=== PATIENT | female | born 2000 | race Caucasian/White ===

== ENCOUNTER → 2020-04-22 | Outpatient (REF) | payer SELFPAY | LOC: M WUC 15:05 | PROVIDERS: ATTEND Physician Assistant | DX: R30.0 Dysuria (principal) ==

== ENCOUNTER 2020-06-12 02:23 | Emergency (ER) | payer SELFPAY ==
[~2020-06-12] VITALS: Ht 170.2 cm; Wt 70.5 kg
[2020-06-12 02:24] VITALS: BP 136/71
== END 2020-06-12 05:15 | disposition left against medical advice (07) ==
LOC: M ED 02:23
DX: Z53.21 Procedure and treatment not carried out due to patient leaving prior to being seen by health care provider (principal)

== ENCOUNTER → 2021-02-20 | Outpatient (CLI) | payer OTHER ==
[~2021-02-20] MED LIST: ACET-907 PO; ACET1TAB55 PO; BENA25CA4 PO; CYCL-707 PO; FIOR1CAP PO; IBUP80TA PO; IRON1TAB2 PO; MACR100C43 PO; ONDA4TAB6 PO; PYRI25TA2 PO; TUMS500C PO; UNIS25TA3 PO
== END ==
LOC: M RAD 11:26
PROVIDERS: ATTEND Registered Nurse Maternal Newborn
DX: Z34.92 Encounter for supervision of normal pregnancy, unspecified, second trimester (principal)

== ENCOUNTER → 2021-03-12 | Outpatient (CLI) | payer OTHER ==
[~2021-03-12] MED LIST changes: -ACET-907 PO; -ACET1TAB55 PO; -BENA25CA4 PO; -CYCL-707 PO; -FIOR1CAP PO; -IBUP80TA PO; -IRON1TAB2 PO; -TUMS500C PO
--- NOTE | 2021-03-12 16:24 | REP ---
INDICATION: PREG 22+ ANATOMY COMPARISON: 02/20/2021 TECHNIQUE: Transabdominal obstetrical ultrasound with color Doppler evaluation. FINDINGS: Examination demonstrates a single live intrauterine in cephalic presentation. motion is identified by technologist. Placenta is noted anterior and grade 0 without evidence for placenta previa or abruption. Amniotic fluid volume is normal. Cervix measures 3.5 cm in length and appears closed.. Selected gestational age: 23 weeks 4 days with JOSE 07/05/2021. Gestational age by current measurements 23 weeks 1 day with JOSE 07/08/2021. FHR equals 150 beats per minute. Estimated weight 587 grams (47thpercentile). Anatomical assessment demonstrates normal structures including facial profile, four-chamber heart, diaphragm, stomach/abdominal wall, kidneys/bladder and spine. IMPRESSION: Single live intrauterine in cephalic presentation demonstrating appropriate estimated weight. In conjunction with prior examination anatomical assessment is complete and normal. No gross abnormalities are identified. <Electronically signed by Brice Gordon > 03/12/21 [id number]
== END ==
LOC: M RAD 15:34
PROVIDERS: ATTEND Nurse Practitioner Women's Health
DX: Z36.89 Encounter for other specified antenatal screening (principal); Z3A.22 22 weeks gestation of pregnancy

== ENCOUNTER 2021-04-28 11:10 | Emergency (ER) | payer OTHER ==
[~2021-04-28] VITALS: Ht 170.2 cm; Wt 73.3 kg
[2021-04-28 11:10] VITALS: BP 109/62
[2021-04-28] MEDS ORDERED: CYCL-707 PO (11:23)
[2021-04-28] MEDS ORDERED: IRON1TAB2 PO (11:23)
== END 2021-04-28 15:37 | disposition left against medical advice (07) ==
LOC: M ED 11:10
DX: Z53.21 Procedure and treatment not carried out due to patient leaving prior to being seen by health care provider (principal)

== ENCOUNTER 2021-06-30 16:21 | Outpatient (CLI) | payer OTHER ==
[~2021-06-30] VITALS: Ht 170.2 cm; Wt 79.3 kg
[~2021-06-30 16:21] MED LIST changes: +CYCL-707 PO; +IRON1TAB2 PO
[2021-06-30] MEDS ORDERED: ACET-907 PO (16:32)
[2021-06-30 18:48] VITALS: BP 134/81
== END 2021-06-30 20:05 | disposition home or self-care (01) ==
LOC: M LDO 16:21
PROVIDERS: ATTEND Obstetrics & Gynecology
DX: O36.8130 Decreased fetal movements, third trimester, not applicable or unspecified (principal); O26.893 Other specified pregnancy related conditions, third trimester; Z3A.39 39 weeks gestation of pregnancy; G43.909 Migraine, unspecified, not intractable, without status migrainosus; O99.353 Diseases of the nervous system complicating pregnancy, third trimester
CPT/HCPCS: 36415; 59025; 82247; 82565; 82570; 83615; 84156; 84450; 84460; 84550; 85027; G0463

== ENCOUNTER 2021-07-03 00:31 | Outpatient (CLI) | payer OTHER ==
[~2021-07-03] VITALS: Ht 170.2 cm; Wt 79.6 kg
[~2021-07-03 00:31] MED LIST changes: +ACET-907 PO
== END 2021-07-03 01:39 | disposition home or self-care (01) ==
LOC: M LDO 00:31
PROVIDERS: ATTEND Obstetrics & Gynecology
DX: O47.1 False labor at or after 37 completed weeks of gestation (principal); Z3A.39 39 weeks gestation of pregnancy
CPT/HCPCS: 59025; G0378; G0463

== ENCOUNTER 2021-07-06 08:46 | Outpatient (CLI) | payer OTHER ==
[~2021-07-06] VITALS: Ht 170.2 cm; Wt 79.7 kg
[2021-07-06 09:10] VITALS: BP 113/73
[2021-07-06] MEDS ORDERED: TUMS500C PO (09:46)
[2021-07-06] MEDS ORDERED: FIOR1CAP PO (09:46)
[2021-07-07] MEDS ORDERED: BENA25CA4 PO (02:38)
== END 2021-07-06 10:57 | disposition home or self-care (01) ==
LOC: M LDO 08:46
PROVIDERS: ATTEND Obstetrics & Gynecology
DX: O26.893 Other specified pregnancy related conditions, third trimester (principal); Z3A.40 40 weeks gestation of pregnancy; O48.0 Post-term pregnancy; N89.8 Other specified noninflammatory disorders of vagina
CPT/HCPCS: 59025; 76815; G0378; G0463

== ENCOUNTER 2021-07-07 02:23 | Inpatient (IN) | payer OTHER ==
[~2021-07-07] VITALS: Ht 170.2 cm; Wt 79.7 kg
[2021-07-07] VITALS (37 sets, daily range): BP systolic 101–149; BP diastolic 51–88
[~2021-07-07 02:23] MED LIST changes: +FIOR1CAP PO; +TUMS500C PO
[2021-07-07] MEDS ORDERED: BENA25CA4 PO (02:38)
[2021-07-07] MEDS ORDERED: HOME MED LIST COMPLETE! XX SCH (02:40)
[2021-07-07] MEDS ORDERED: LACTATED RINGER'S 1000 ML IV STA (03:19)
[2021-07-07] MEDS ORDERED: LIDOCAINE 1% MDV 20ML VIAL INFIL PRN (03:20)
[2021-07-07] MEDS ORDERED: OXYTOCIN DRIP 30 UNITS in IV 1 EA IV PRN (03:20)
[2021-07-07] MEDS ORDERED: METHYLERGONOVINE MALEATE 0.2 MG/ML VIAL (J2210) IM PRN (03:20)
[2021-07-07] MEDS ORDERED: PROMETHAZINE INJ 25 MG/ML VIAL (J2550) IV PRN (03:35)
[2021-07-07] MEDS ORDERED: BUTORPHANOL 2 MG/ML INJ (J0595) IV PRN (03:35)
[2021-07-07 03:37] LABS: HEMATOCRIT 32.1 % (36.0-47.0); HEMOGLOBIN 10.8 g/dl (12.0-15.5); MEAN CORPUSCULAR HEMOGLOBIN 28.3 pg (27.0-33.0); MEAN CORPUSCULAR HGB CONC 33.6 g/dl (32.0-36.5); PLATELET COUNT, AUTOMATED 379 10^3/uL (150-450); RED BLOOD COUNT 3.82 10^6/uL (4.00-5.40); WHITE BLOOD COUNT 16.5 10^3/uL (4.0-10.0)
[2021-07-07] MEDS ORDERED: FENTANYL 2MCG/ML ROPIVACAINE 0.2% IN 0.9% NACL 100ML IVBAG As Ordered ONE (07:47)
[2021-07-07] MEDS ORDERED: ONDANSETRON 4MG/2ML VIAL IV PRN (07:55)
[2021-07-07] MEDS ORDERED: EPIDURAL/PCA KEYS XX PRN (07:55)
[2021-07-07] MEDS ORDERED: REFRIGERATOR IV KEYS XX PRN (07:55)
[2021-07-07] MEDS ORDERED: LACTATED RINGER'S 1000 ML IV PRN (07:55)
[2021-07-07] MEDS ORDERED: diphenhydrAMINE 50MG/ML VIAL (J1200) IV PRN (07:55)
[2021-07-07] MEDS ORDERED: FENTANYL/ROPIVACAINE/NACL BAG 100 ML EPIDURAL SCH (07:55)
[2021-07-07] MEDS ORDERED: ePHEDrine SULFATE 25 MG/5 ML(5MG/ML) SYRINGE IV PRN (07:55)
[2021-07-07] MEDS ORDERED: NALOXONE INJ 0.4MG/1ML VIAL (J2310 PER 1MG) IV PRN (07:55)
[2021-07-07] MEDS ORDERED: EPIDURAL COMMENT XX SCH (07:55)
[2021-07-07] MEDS: LR 1,000 ML IV SCH ×2 (08:50→15:02)
[2021-07-07] MEDS ORDERED: ACETAMINOPHEN 325 MG TAB PO ONE (09:25)
[2021-07-07] MEDS ORDERED: OXYTOCIN DRIP 30 UNITS in IV 1 EA IV SCH (13:45)
[2021-07-07] MEDS ORDERED: DIBUCAINE 1% OINTMENT 30GM TOP PRN (15:05)
[2021-07-07] MEDS ORDERED: METHYLERGONOVINE MALEATE 0.2 MG TAB PO PRN (15:05)
[2021-07-07] MEDS ORDERED: RHOGAM 300 MCG (1500 IU) INJ (J2790) IM SCH (15:05)
[2021-07-07] MEDS ORDERED: MEASLES,MUMPS,RUBELLA VACCINE INJ (MMR-II) (90707) SC SCH (15:05)
[2021-07-07] MEDS: IBUPROFEN 800 MG TAB PO PRN (19:32)
[2021-07-07] MEDS: ACETAMINOPHEN TAB 650MG DOSE (2X325MG) PO PRN (22:51)
[2021-07-08 06:00] VITALS: BP 98/48
[2021-07-08] MEDS: ACETAMINOPHEN TAB 650MG DOSE (2X325MG) PO PRN ×2 (06:09→13:09)
[2021-07-08] MEDS: PRENATAL VITAMINS CHEWABLE TABLET PO SCH (07:32)
[2021-07-08] MEDS: IBUPROFEN 800 MG TAB PO PRN ×2 (07:42→18:06)
[2021-07-08] MEDS ORDERED: BOOSTRIX/ADACEL VACCINE (DIPHTH/PERTUSS/ACELL/TETANUS) 0.5ML SYR IM ONE (10:00)
[2021-07-08 18:00] VITALS: BP 119/72
[2021-07-08] MEDS: DOCUSATE SODIUM 100MG CAPSULE PO PRN (21:45)
[2021-07-09 06:00] VITALS: BP 113/55
[2021-07-09] MEDS ORDERED: IBUP80TA PO (06:52)
[2021-07-09] MEDS ORDERED: ACET1TAB55 PO (06:52)
[2021-07-09] MEDS: PRENATAL VITAMINS CHEWABLE TABLET PO SCH (09:25)
[2021-07-09] MEDS: IBUPROFEN 800 MG TAB PO PRN (09:26)
[2021-07-09] MEDS: DOCUSATE SODIUM 100MG CAPSULE PO PRN (09:26)
== END 2021-07-09 11:35 | disposition home or self-care (01) | DRG 807 ==
LOC: M LDO 02:23 → M LDI 03:11 → M OBS 17:00
PROVIDERS: ADMIT Obstetrics & Gynecology; ATTEND Registered Nurse
PROC: 10E0XZZ Delivery of Products of Conception, External Approach (ICD-10-PCS; principal; 2021-07-07)
PROC: 0HQ9XZZ Repair Perineum Skin, External Approach (ICD-10-PCS; 2021-07-07)
DX: O48.0 Post-term pregnancy (principal); Z37.0 Single live birth; Z3A.40 40 weeks gestation of pregnancy; O99.02 Anemia complicating childbirth; D64.9 Anemia, unspecified; O99.344 Other mental disorders complicating childbirth; F32.A Depression, unspecified; F41.9 Anxiety disorder, unspecified; O69.81X0 Labor and delivery complicated by cord around neck, without compression, not applicable or unspecified; O69.82X0 Labor and delivery complicated by other cord entanglement, without compression, not applicable or unspecified; O32.6XX0 Maternal care for compound presentation, not applicable or unspecified; O70.0 First degree perineal laceration during delivery

== ENCOUNTER 2021-12-22 17:21 | Emergency (ER) | payer OTHER ==
[~2021-12-22] VITALS: Ht 170.2 cm; Wt 67.7 kg
[~2021-12-22 17:21] MED LIST changes: +ACET1TAB55 PO; +BENA25CA4 PO; +IBUP80TA PO
[2021-12-22] MEDS ORDERED: ONDANSETRON 4MG 2ML VIAL IV ONE (19:35)
[2021-12-22] MEDS ORDERED: NS 1,000 ML IV ONE (19:35)
[2021-12-22 19:46] LABS: RSV AMPLIFICATION NEGATIVE (NEGATIVE)
[2021-12-22 20:42] LABS: BASO # 0.1 10^3/uL (0.0-0.2); BASO % 0.4 % (0.0-1.0); EOS # 0.4 10^3/uL (0.0-0.5); EOS % 2.5 % (0.0-3.0); HEMATOCRIT 29.7 % (36.0-47.0); LYMPH # 2.4 10^3/uL (1.5-5.0); LYMPH % 16.4 % (24.0-44.0); MEAN CORPUSCULAR HEMOGLOBIN 28.2 pg (27.0-33.0); MEAN CORPUSCULAR HGB CONC 33.7 g/dl (32.0-36.5); MEAN CORPUSCULAR VOLUME 83.7 fl (80.0-96.0); MONO # 0.8 10^3/uL (0.0-0.8); MONO % 5.6 % (2.0-8.0); NEUTROPHILS % 74.8 % (36.0-66.0); PLATELET COUNT, AUTOMATED 312 10^3/uL (150-450); RED BLOOD COUNT 3.55 10^6/uL (4.00-5.40); WHITE BLOOD COUNT 14.7 10^3/uL (4.0-10.0)
[2021-12-22 20:58] LABS: ALBUMIN 3.3 GM/DL (3.2-5.2); ALT/SGPT 16 U/L (12-78); BILIRUBIN,DIRECT < 0.1 MG/DL (0.0-0.2); BILIRUBIN,TOTAL 0.2 MG/DL (0.2-1.0); BLOOD UREA NITROGEN 11 MG/DL (7-18); CALCIUM LEVEL 8.9 MG/DL (8.5-10.1); CARBON DIOXIDE LEVEL 20 MEQ/L (21-32); CHLORIDE LEVEL 111 MEQ/L (98-107); CREATININE FOR GFR 0.45 MG/DL (0.55-1.30); GLOMERULAR FILTRATION RATE > 60.0 (>60); GLUCOSE, FASTING 77 MG/DL (70-100); POTASSIUM SERUM 3.8 MEQ/L (3.5-5.1); SODIUM LEVEL 140 MEQ/L (136-145); TOTAL PROTEIN 6.4 GM/DL (6.4-8.2)
[2021-12-22 21:56] VITALS: BP 109/58
== END 2021-12-22 22:05 | disposition home or self-care (01) ==
LOC: M ED 17:21
DX: O99.512 Diseases of the respiratory system complicating pregnancy, second trimester (principal); J06.9 Acute upper respiratory infection, unspecified; O21.9 Vomiting of pregnancy, unspecified; O99.342 Other mental disorders complicating pregnancy, second trimester; Z3A.16 16 weeks gestation of pregnancy
CPT/HCPCS: 76815; 80048; 80076; 85025; 87631; 96361; 96374; 99284; J2405

== ENCOUNTER 2022-04-08 16:48 | Outpatient (CLI) | payer OTHER ==
[~2022-04-08] VITALS: Ht 170.2 cm; Wt 81.7 kg
[2022-04-08 16:59] VITALS: BP 108/59
[2022-04-08] MEDS ORDERED: TUMS500C PO (17:01)
[2022-04-08] MEDS ORDERED: PREN1CHW6 PO (17:01)
[2022-04-08] MEDS ORDERED: ACET325C5 PO (17:02)
[2022-04-08] MEDS ORDERED: BACLOFEN 5MG PER 1/2 TABLET GT ONE (18:40)
[2022-04-08] MEDS ORDERED: ACETAMINOPHEN 500 MG TAB PO ONE (18:45)
[2022-04-08 18:50] VITALS: BP 116/60
[2022-04-08 18:55] LABS: APPEARANCE, URINE MANUAL CLEAR (CLEAR); BILIRUBIN, URINE MANUAL NEGATIVE (NEGATIVE); COLOR, URINE MANUAL COLORLESS (YELLOW); GLUCOSE, URINE (UA) MANUAL NEGATIVE (NEGATIVE); KETONE, URINE MANUAL NEGATIVE (NEGATIVE); NITRITE, URINE MANUAL NEGATIVE (NEGATIVE); PROTEIN, URINE MANUAL NEGATIVE (NEGATIVE); SPECIFIC GRAVITY,URINE MANUAL 1.005 (1.002-1.035); UROBILINOGEN, URINE MANUAL NORMAL (NORMAL)
[2022-04-08 18:56] LABS: BLOOD URINE MANUAL NEGATIVE (NEGATIVE); LEUKOCYTE ESTERASE, URINE MAN POSITIVE (NEGATIVE)
[2022-04-08 19:39] LABS: BACTERIA, URINE LARGE AMOUNT; RBC, URINE 0-1 /hpf (0-3); SQUAMOUS EPITHELIAL CELL URINE LARGE AMOUNT /hpf (SMALL AMT)
[2022-04-08 19:40] LABS: HYALINE CAST, URINE NONE SEEN /lpf (0-1)
== END 2022-04-08 19:50 | disposition home or self-care (01) ==
LOC: M LDO 16:48
PROVIDERS: ATTEND Obstetrics & Gynecology
DX: O23.43 Unspecified infection of urinary tract in pregnancy, third trimester (principal); Z3A.29 29 weeks gestation of pregnancy
CPT/HCPCS: 59025; 81000; 87086; G0463

== ENCOUNTER 2022-06-18 03:59 | Inpatient (IN) | payer OTHER ==
[2022-06-18] VITALS (14 sets, daily range): BP systolic 114–138; BP diastolic 56–81
[~2022-06-18] VITALS: Ht 170.2 cm; Wt 91.6 kg
[~2022-06-18 03:59] MED LIST changes: +ACET325C5 PO; +PREN1CHW6 PO
[2022-06-18] MEDS ORDERED: OXYTOCIN INJ 10UNITS/ML 1ML VIAL IV PRN (06:50)
[2022-06-18] MEDS ORDERED: OXYTOCIN DRIP 30 UNITS in IV 1 EA IV SCH ×2 (06:50→17:00)
[2022-06-18] MEDS ORDERED: TRANEXAMIC ACID INJection 1,000 MG in NS 100 ML IV PRN (06:50)
[2022-06-18] MEDS ORDERED: OXYTOCIN DRIP 30 UNITS in IV 1 EA IV PRN ×6 (06:50)
[2022-06-18] MEDS ORDERED: LIDOCAINE 1% MDV 20ML VIAL INFIL PRN (06:50)
[2022-06-18] MEDS ORDERED: OXYTOCIN INJ 10UNITS/ML 1ML VIAL IM PRN (06:50)
[2022-06-18] MEDS ORDERED: CARBOPROST TROMETHAMINE 250 MCG/ML AMP IM PRN (06:50)
[2022-06-18] MEDS ORDERED: LACTATED RINGER'S 1000 ML IV STA (06:50)
[2022-06-18] MEDS ORDERED: LR 1,000 ML IV SCH ×3 (06:50→17:00)
[2022-06-18] MEDS ORDERED: METHYLERGONOVINE MALEATE 0.2 MG/ML VIAL (J2210) IM PRN ×2 (06:50→17:00)
[2022-06-18 07:31] LABS: HEMATOCRIT 31.3 % (36.0-47.0); HEMOGLOBIN 10.2 g/dl (12.0-15.5); MEAN CORPUSCULAR HEMOGLOBIN 27.6 pg (27.0-33.0); MEAN CORPUSCULAR HGB CONC 32.6 g/dl (32.0-36.5); MEAN CORPUSCULAR VOLUME 84.6 fl (80.0-96.0); PLATELET COUNT, AUTOMATED 391 10^3/uL (150-450); WHITE BLOOD COUNT 19.1 10^3/uL (4.0-10.0)
[2022-06-18] MEDS ORDERED: BUTORPHANOL 2 MG/ML 1ML VIAL IV PRN (07:40)
[2022-06-18] MEDS ORDERED: PROMETHAZINE 25MG/ML 1ML VIAL IV PRN (07:40)
[2022-06-18] MEDS ORDERED: CALCIUM CARBONATE 500 MG CHEW U/D PO PRN (08:00)
[2022-06-18] MEDS ORDERED: FENTANYL/ROPIVACAINE/NACL BAG 100 ML EPIDURAL SCH (15:40)
[2022-06-18] MEDS ORDERED: NALOXONE INJ 0.4MG/1ML VIAL IV PRN (15:40)
[2022-06-18] MEDS ORDERED: diphenhydrAMINE 50MG/ML VIAL IV PRN (15:40)
[2022-06-18] MEDS ORDERED: ePHEDrine SULFATE 25 MG/5 ML(5MG/ML) SYRINGE IVP PRN (15:40)
[2022-06-18] MEDS ORDERED: LR 500 ML IV PRN (15:40)
[2022-06-18] MEDS ORDERED: EPIDURAL/PCA KEYS XX PRN (15:40)
[2022-06-18] MEDS ORDERED: ONDANSETRON 4MG 2ML VIAL IV PRN ×2 (15:40→17:00)
[2022-06-18 16:28] LABS: CORD GAS ABE V -4.4; CORD GAS HCO3 V 19.8 MEQ/L; CORD GAS O2 SAT V 74.6 %; CORD GAS PCO2 V 34.5 mmHg; CORD GAS PH V 7.376 UNITS; CORD GAS SBC V 20.3 MEQ/L; CORD GAS TCO2 V 20.8 MEQ/L
[2022-06-18 16:31] LABS: CORD GAS PCO2 A 54.1 mmHg; CORD GAS PH A 7.233 UNITS
[2022-06-18 16:32] LABS: CORD GAS PO2 A QNS mmHg
[2022-06-18 16:33] LABS: CORD GAS O2 SAT A 66.8 %
[2022-06-18 16:35] LABS: CORD GAS HCO3 A 22.3 MEQ/L; CORD GAS SBC A 18.9 MEQ/L
[2022-06-18] MEDS ORDERED: DIBUCAINE 1% OINTMENT 30GM TOP PRN (17:00)
[2022-06-18] MEDS ORDERED: METOCLOPRAMIDE INJ 10MG/2ML VIAL IV PRN (17:00)
[2022-06-18] MEDS ORDERED: DOCUSATE SODIUM 100MG CAPSULE PO PRN (17:00)
[2022-06-18] MEDS ORDERED: RHOGAM 300MCG (1500IU) INJ IM SCH (17:00)
[2022-06-18] MEDS: ACETAMINOPHEN 500 MG TAB PO SCH ×2 (17:19→23:59)
[2022-06-18] MEDS ORDERED: METHYLERGONOVINE MALEATE 0.2 MG TAB PO SCH (18:00)
[2022-06-18] MEDS: IBUPROFEN 800 MG TAB PO SCH (22:01)
[2022-06-18] MEDS: METHYLERGONOVINE MALEATE 0.2 MG TAB PO SCH (23:59)
[2022-06-19] MEDS: ACETAMINOPHEN 500 MG TAB PO SCH ×4 (05:03→22:47)
[2022-06-19] MEDS: IBUPROFEN 800 MG TAB PO SCH ×3 (05:58→22:47)
[2022-06-19] MEDS: METHYLERGONOVINE MALEATE 0.2 MG TAB PO SCH ×2 (05:58→12:01)
[2022-06-19 06:00] VITALS: BP 105/55
[2022-06-19 07:00] LABS: HEMATOCRIT 32.6 % (36.0-47.0); HEMOGLOBIN 10.4 g/dl (12.0-15.5); MEAN CORPUSCULAR HEMOGLOBIN 27.4 pg (27.0-33.0); MEAN CORPUSCULAR HGB CONC 31.9 g/dl (32.0-36.5); MEAN CORPUSCULAR VOLUME 85.8 fl (80.0-96.0); PLATELET COUNT, AUTOMATED 372 10^3/uL (150-450); WHITE BLOOD COUNT 19.8 10^3/uL (4.0-10.0)
[2022-06-19] MEDS: PRENATAL VITAMINS CHEWABLE TABLET PO SCH (08:07)
[2022-06-19] MEDS: FAMOTIDINE 20 MG TAB PO SCH ×2 (09:00→21:02)
[2022-06-19] MEDS: metroNIDAZOLE (FLAGYL) 500MG TABLET PO SCH ×2 (09:52→21:02)
[2022-06-19 18:00] VITALS: BP 116/61
[2022-06-20] MEDS: ACETAMINOPHEN 500 MG TAB PO SCH (04:55)
[2022-06-20] MEDS: IBUPROFEN 800 MG TAB PO SCH (05:51)
[2022-06-20 06:00] VITALS: BP 103/53
[2022-06-20] MEDS: metroNIDAZOLE (FLAGYL) 500MG TABLET PO SCH (08:21)
[2022-06-20] MEDS: FAMOTIDINE 20 MG TAB PO SCH (08:21)
[2022-06-20] MEDS: PRENATAL VITAMINS CHEWABLE TABLET PO SCH (08:21)
[2022-06-20] MEDS ORDERED: ACET-683 PO (08:42)
[2022-06-20] MEDS ORDERED: IBUP80TA PO (08:42)
[2022-06-20] MEDS ORDERED: MEASLES,MUMPS,RUBELLA VACCINE INJ (MMR-II) SC.IMMUN ONE (09:00)
== END 2022-06-20 11:55 | disposition home or self-care (01) | DRG 807 ==
LOC: M LDO 03:59 → M LDI 06:54 → M OBS 20:26
PROVIDERS: ADMIT Obstetrics & Gynecology; ATTEND Obstetrics & Gynecology
PROC: 10E0XZZ Delivery of Products of Conception, External Approach (ICD-10-PCS; principal; 2022-06-18)
PROC: 0HQ9XZZ Repair Perineum Skin, External Approach (ICD-10-PCS; 2022-06-18)
DX: O70.0 First degree perineal laceration during delivery (principal); Z37.0 Single live birth; Z3A.39 39 weeks gestation of pregnancy